=== PATIENT | male | born 1995 | race Asian ===

== ENCOUNTER 2020-01-14 12:42 | Emergency (ER) | payer BC, SELFPAY | END 2020-01-14 13:31 | disposition home or self-care (01) | LOC: ERS 12:42 | DX: S01.512A Laceration without foreign body of oral cavity, initial encounter (principal); S70.12XA Contusion of left thigh, initial encounter; V89.2XXA Person injured in unspecified motor-vehicle accident, traffic, initial encounter | CPT/HCPCS: 99284 ==